=== PATIENT | female | born 1970 | race Hispanic/Latino ===

== ENCOUNTER 2022-10-26 14:00 | Emergency (ER) | payer BC, OTHER ==
[~2022-10-26] VITALS: Ht 154.9 cm; Wt 106.6 kg
[2022-10-26] MEDS ORDERED: PRED50TA2 PO (15:20)
[2022-10-26] MEDS ORDERED: DIPH50 PO (15:20)
[2022-10-26] MEDS ORDERED: CIME400T PO (15:20)
[2022-10-26] MEDS ORDERED: SOLU-MEDROL 125MG VIAL IM ONE (15:30)
[2022-10-26] MEDS ORDERED: DiphenhydrAMINE HCL 50 MG/ML VIAL IM ONE (15:30)
[2022-10-26 15:41] VITALS: BP 144/71
== END 2022-10-26 15:44 | disposition home or self-care (01) ==
LOC: EDH 14:00
DX: L50.0 Allergic urticaria (principal); E78.00 Pure hypercholesterolemia, unspecified; I10 Essential (primary) hypertension; E03.9 Hypothyroidism, unspecified
CPT/HCPCS: 99284; 96372 ×2; J1200; J2930

== ENCOUNTER → 2025-07-21 | Emergency (ER) | payer BC ==
[~2025-07-21] VITALS: Ht 154.9 cm; Wt 108.9 kg
[~2025-07-21] MED LIST: CIME400T PO; CYCL10TA16 PO; DIPH50CA38 PO; NAPR-1196 PO; PRED50TA2 PO
[2025-07-21 15:46] VITALS: BP 118/82; PULSE 71; RESP 17; TEMP 98.2; O2SAT 99
[2025-07-21] MEDS: HYDROcodone/APAP 5/325 1 TAB TABLET PO STA (16:30)
--- NOTE | 2025-07-21 16:51 | HMCIMG ---
RIBS UNI RT W PA CHEST 3+ VWS REASON: trauma TECHNIQUE: 5 views were obtained. FINDINGS: There is no evidence of fracture or dislocation. There is no joint effusion. The soft tissues appear unremarkable. There is no evidence of a radiopaque foreign body. The chest demonstrate the cardiac first within the limits of normal. The lung ring are clear. IMPRESSION: No acute findings.
--- NOTE | 2025-07-21 17:51 | ERN ---
ED Note History of Present Illness Stated Complaint: RT RIB PAIN/ABDOMINAL PAIN Chief Complaint: Rib Pain Time Seen by MD: 15:36 Dictation: 55-year-old female presenting to the emergency department with right-sided lower chest wall pain after hitting herself with a wooden chair five days ago. Patient denies any shortness a breath but does have pain to the area and worse with movement. Allergies: Coded Allergies: No Known Allergies (Unverified Allergy, Unknown, 10/26/22) Home Meds Active Scripts Prednisone (Prednisone) 50 Mg Tablet, 50 MG PO DAILY for 5 Days, #5 TAB 0 Refills Prov:YAYA DIALLO MD 10/26/22 Diphenhydramine HCl (Benadryl) 50 Mg Cap, 50 MG PO Q6H for itching/rash, #20 CAP 0 Refills Prov:YAYA DIALLO MD 10/26/22 Cimetidine (Cimetidine) 400 Mg Tablet, 400 MG PO BID for allergy, #30 TAB 0 Refills Prov:YAYA DIALLO MD 10/26/22 Past Medical History Past Medical History: High Cholesterol, Hypertension Surgical History: Other Surgical History Other: THYROID Social History: Negative Review of System Dictation Constitutional: Negative for fever,chills, and weight loss Eyes: Negative for injury, pain,redness, and discharge ENT: Negative for injury,pain or swelling Cardiovascular: Per HPI Respiratory: Negative for shortness of breath, cough, and wheezing, Abdomen/GI: Negative for abdominal pain, nausea, vomiting, diarrhea, and constipation Back: Negative for injury and pain : Negative for injury, bleeding and discharge MS/Extremity: Negative for injury and deformity Skin: Negative for rash, and discoloration Neuro: Negative for headache, weakness, numbness, tingling, and seizure Psych: Negative for suicide ideation, homicidal ideation, and hallucinations Initial Vital Sign VS Vital Signs Date Time Temp Pulse Resp B/P (MAP) Pulse Ox O2 Delivery O2 Flow Rate FiO2 07/21/25 15:18 98.1 75 20 125/83 97 Room Air 07/21/25 15:46 0 21 Physical Exam Dictation General: awake, alert, NAD Head/Face: Normocephalic, atraumatic Eyes: PERRL, EOMI, vision at baseline ENT: oral cavity clear, TMs clear, no signs of infection Neck: Trachea midline, supple, no nuchal rigidity Cardiovascular: RRR, normal S1/S2, No MRGs, no JVD Chest wall-tenderness to the right lateral lower aspect of the chest area Respiratory: CTAB, no respiratory distress, No rales or wheezes Abdomen: Soft, non-tender, non-distended, normal bowel sounds, no guarding or rebound. Skin: Warm, dry, normal turgor, no rash MS/Extremity: Pulses equal, no cyanosis, neurovascular intact, FROM Neuro: COAx4, GCS 15, strength 5/5, CN 2-12 intact, normal cerebellar exam, normal gait, Psych: Normal behavior, mood, and affect normal ED Course ED Course Orders Procedure Category Date Status Time Hydrocodone/Apap PHA 07/21/25 Complete 5/325 ([place] 5/325mg) 16:13 Ribs Uni Rt W Pa RAD 07/21/25 Resulted Chest 3+ Vws 16:13 Ketorolac PHA 07/21/25 Complete Tromethamine 30mg/Ml 16:30 Current Medications Medications (Trade) Dose Ordered Sig/Kenia Route PRN Reason Start Time Stop Time Status Last Admin Dose Admin Acetaminophen/ Hydrocodone Bitart (NORco 5/325MG) 1 tab ONCE STAT PO 07/21/25 16:13 07/21/25 16:18 DC 07/21/25 16:30 Ketorolac Tromethamine (toRADol) 30 mg ONCE ONCE IM 07/21/25 16:30 07/21/25 16:31 DC 07/21/25 16:30 Vital Signs Date Time Temp Pulse Resp B/P (MAP) Pulse Ox O2 Delivery O2 Flow Rate FiO2 07/21/25 15:46 98.2 71 17 118/82 99 Room Air* 0 21 07/21/25 15:18 98.1 75 20 125/83 97 Room Air Medical Decision Making MDM MDM: Differential diagnosis: Rationale: Tests considered and ordered secondary to shared decision making include: Previous outside records reviewed: Old ER visits. Risk of complication and/or morbidity or mortality of patient management: None Medications-Per medication reconciliation Need for hospitalization: Patient does not meet criteria for hospitalization. Need for emergency major/minor surgery: No There are no social concerns with this patient. Prescription drug management Prescriptions will include symptomatic care Patient's prior external medical records from other ER visits were reviewed by me as indicated. Prior testing and results from previous visits were reviewed. Prior tests were taken into account with medical decision making and resource utilization, independent historian/historians were used to obtain complete medical history. I independently interpreted the test that were performed, results were reviewed by me and considered findings on radiology if ordered. Medical management and examination interpretation discussions were had by me with other qualified healthcare professionals as indicated for the patient's care. 55-year-old female with right-sided rib fractures x2 on plain film, no pneumothorax, bedside fast exam showed no signs of pneumothorax or free fluid in the right upper quadrant around the liver, patient is stable vital signs are stable given incentive spirometry and pain medicine and stable for discharge low comorbidities due to age. DX & DISP Disposition: Discharge Departure Impression: Primary Impression: Right rib fracture Additional Impression: Chest wall injury Condition: Stable Scripts Naproxen (Naproxen) 250 Mg Tablet 250 MG PO BID for 5 Days, #10 TAB Prov: NAZARIO HENDERSON MD 07/21/25 Cyclobenzaprine HCl (Flexeril) 10 Mg Tab 10 MG PO BID for muscle sstiffness for 10 Days, #20 TAB 0 Refills Prov: NAZARIO HENDERSON MD 07/21/25 Referrals: ORQUIDEA EVANS [employer] (PCP) NAZARIO HENDERSON MD Jul 21, 2025 17:51
== END ==
LOC: EDH 15:16
DX: S22.31XA Fracture of one rib, right side, initial encounter for closed fracture (principal); E78.00 Pure hypercholesterolemia, unspecified; I10 Essential (primary) hypertension; Z79.52 Long term (current) use of systemic steroids; W22.03XA Walked into furniture, initial encounter; Y93.89 Activity, other specified; Y92.89 Other specified places as the place of occurrence of the external cause; Y99.8 Other external cause status
CPT/HCPCS: 99284; 71101; 96372; J1885